=== PATIENT | male | born 1950 | race Caucasian/White ===

== ENCOUNTER → 2016-07-25 | Outpatient (CLI) | payer MEDICARE ==
[2016-07-25 13:24] LABS: CALCIUM LEVEL 8.5 MG/DL (8.8-10.2); CREATININE FOR GFR 1.36 MG/DL (0.70-1.30); GLOMERULAR FILTRATION RATE 55.8 (>49); POTASSIUM SERUM 4.6 MEQ/L (3.5-5.1)
== END ==
LOC: M LAB 12:07
PROVIDERS: ATTEND Urology
DX: C64.1 Malignant neoplasm of right kidney, except renal pelvis (principal); Z12.5 Encounter for screening for malignant neoplasm of prostate
CPT/HCPCS: 36415; 80048; G0103

== ENCOUNTER → 2017-07-27 | Outpatient (CLI) | payer MEDICARE ==
[2017-07-27 12:39] LABS: BASO # 0.1 10^3/uL (0.0-0.2); BASO % 1.1 % (0.0-1.0); EOS # 0.4 10^3/uL (0.0-0.50); EOS % 3.6 % (0.0-3.0); HEMATOCRIT 47.4 % (42.0-52.0); HEMOGLOBIN 16.7 g/dl (13.5-17.5); IMMATURE GRANULOCYTE % 0.3 % (0-3.0); LYMPH # 3.6 10^3/uL (1.5-4.5); LYMPH % 33.8 % (24.0-44.0); MEAN CORPUSCULAR HEMOGLOBIN 31.2 pg (27.0-33.0); MEAN CORPUSCULAR HGB CONC 35.2 g/dl (32.0-36.5); MEAN CORPUSCULAR VOLUME 88.4 fl (80.0-96.0); MONO # 0.9 10^3/uL (0.0-0.8); MONO % 8.8 % (0.0-5.0); NEUTROPHILS # 5.6 10^3/uL (1.8-7.7); NEUTROPHILS % 52.4 % (36.0-66.0); PLATELET COUNT, AUTOMATED 265 10^3/uL (150-450); RED BLOOD COUNT 5.36 10^6/uL (4.30-6.10); RED CELL DISTRIBUTION WIDTH 12.8 % (11.5-14.5); WHITE BLOOD COUNT 10.6 10^3/uL (4.0-10.0)
[2017-07-27 13:10] LABS: ANION GAP 6 MEQ/L (8-16); BLOOD UREA NITROGEN 14 MG/DL (7-18); CALCIUM LEVEL 8.3 MG/DL (8.8-10.2); CARBON DIOXIDE LEVEL 24 MEQ/L (21-32); CHLORIDE LEVEL 108 MEQ/L (98-107); GLOMERULAR FILTRATION RATE 53.8 (>49); GLUCOSE, FASTING 120 MG/DL (70-100); SODIUM LEVEL 138 MEQ/L (136-145)
== END ==
LOC: M LAB 12:12
DX: I35.1 Nonrheumatic aortic (valve) insufficiency (principal); I25.10 Atherosclerotic heart disease of native coronary artery without angina pectoris; R42 Dizziness and giddiness; I35.0 Nonrheumatic aortic (valve) stenosis
CPT/HCPCS: 80048

== ENCOUNTER → 2018-02-05 | Outpatient (CLI) | payer MEDICARE ==
[2018-02-05 15:07] LABS: ANION GAP 9 MEQ/L (8-16); BLOOD UREA NITROGEN 12 MG/DL (7-18); CALCIUM LEVEL 9.1 MG/DL (8.8-10.2); CARBON DIOXIDE LEVEL 28 MEQ/L (21-32); CHLORIDE LEVEL 103 MEQ/L (98-107); CREATININE FOR GFR 1.21 MG/DL (0.70-1.30); GLOMERULAR FILTRATION RATE > 60.0 (>49); GLUCOSE, FASTING 114 MG/DL (70-100); POTASSIUM SERUM 4.1 MEQ/L (3.5-5.1); PROSTATIC SPECIFIC AG MONITOR 2.34 NG/ML (< 4.0); SODIUM LEVEL 140 MEQ/L (136-145)
== END ==
LOC: M LAB 14:03
DX: C64.1 Malignant neoplasm of right kidney, except renal pelvis (principal)
CPT/HCPCS: 71046

== ENCOUNTER 2018-11-19 07:04 | Day surgery (SDC) | payer MEDICARE ==
[~2018-11-19] VITALS: Ht 180.3 cm; Wt 104.3 kg
[~2018-11-19 07:04] MED LIST: ASPI81TA85 PO; CLOP75TA2 PO; DULO1CAP5 PO; FISH1000 PO; FLOM0.4C39 PO; LIPI20TA PO; MULTCAP PO; areds 2 PO
[2018-11-19] MEDS ORDERED: NS 1,000 ML IV ONE (07:30)
[2018-11-19] MEDS ORDERED: PROPOFOL 200 MG/20 ML VIAL As Ordered ONE ×2 (07:45→08:34)
[2018-11-19] MEDS ORDERED: LIDOCAINE 2% INJ 100 MG/5 ML SDV (FOR ANES.) As Ordered ONE (07:45)
--- NOTE | 2018-11-19 08:58 | ROOR ---
Patient Name: Addy Ledezma Procedure Date: 11/19/2018 8:10 AM Date of : 1950 Age: 68 Room: [facility] Gender: Male Note Status: Finalized Procedure: Colonoscopy Indications: Screening for colorectal malignant neoplasm Providers: Triston Alvarez MD Referring MD: Jm Lentz DO Requesting Provider: Medicines: Monitored Anesthesia Care Complications: No immediate complications. Procedure: Pre-Anesthesia Assessment: - Prior to the procedure, a History and Physical was performed, and patient medications and allergies were reviewed. The patient is competent. The risks and benefits of the procedure and the sedation options and risks were discussed with the patient. All questions were answered and informed consent was obtained. Patient identification and proposed procedure were verified by the physician, the nurse and the anesthesiologist in the procedure room. Mental Status Examination: alert and oriented. Airway Examination: normal oropharyngeal airway and neck mobility. Respiratory Examination: clear to auscultation. CV Examination: normal. Prophylactic Antibiotics: The patient does not require prophylactic antibiotics. Prior Anticoagulants: The patient has taken Plavix (clopidogrel), last dose was 7 days prior to procedure. ASA Grade Assessment: II - A patient with mild systemic disease. After reviewing the risks and benefits, the patient was deemed in satisfactory condition to undergo the procedure. The anesthesia plan was to use monitored anesthesia care (MAC). Immediately prior to administration of medications, the patient was re-assessed for adequacy to receive sedatives. The heart rate, respiratory rate, oxygen saturations, blood pressure, adequacy of pulmonary ventilation, and response to care were monitored throughout the procedure. The physical status of the patient was re-assessed after the procedure. The Colonoscope was introduced through the anus and advanced to the terminal ileum, with identification of the appendiceal orifice and IC valve. The colonoscopy was performed without difficulty. The patient tolerated the procedure well. The quality of the bowel preparation was good. The terminal ileum, ileocecal valve, appendiceal orifice, and rectum were photographed. Scope insertion time was 3 minutes. Scope withdrawal time was 9 minutes. The total duration of the procedure was 12 minutes. Findings: The perianal and digital rectal examinations were normal. The terminal ileum appeared normal. Three sessile polyps were found in the transverse colon. The polyps were 6 to 12 mm in size. These polyps were removed with a cold snare. Resection and retrieval were complete. Verification of patient identification for the specimen was done by the physician and nurse using the patient's name, date and medical record number. Estimated blood loss was minimal. Eight sessile polyps were found in the recto-sigmoid colon. The polyps were 3 to 8 mm in size. These polyps were removed with a cold snare. Resection and retrieval were complete. Multiple small-mouthed diverticula were found from sigmoid to descending colon. There was no evidence of diverticular bleeding. Non-bleeding external and internal hemorrhoids were found during retroflexion. The hemorrhoids were medium-sized. Impression: - The examined portion of the ileum was normal. - Three 6 to 12 mm polyps in the transverse colon, removed with a cold snare. Resected and retrieved. - Eight 3 to 8 mm polyps at the recto-sigmoid colon, removed with a cold snare. Resected and retrieved. - Mild diverticulosis from sigmoid to descending colon. There was no evidence of diverticular bleeding. - Non-bleeding external and internal hemorrhoids. Recommendation: - Patient has a contact number available for emergencies. The signs and symptoms of potential delayed complications were discussed with the patient. Return to normal activities tomorrow. Written discharge instructions were provided to the patient. - High fiber diet. - Continue present medications. - Resume Plavix (clopidogrel) at prior dose tomorrow. Refer to primary physician for further adjustment of therapy. - Await pathology results. - Repeat colonoscopy in 1 year for surveillance based on pathology results and for surveillance of multiple polyps. - Return to GI clinic in 1 year. - Telephone GI clinic for pathology results in 2 weeks. - Return to primary care physician. Triston Alvarez MD Triston Alvarez MD 11/19/2018 8:57:33 AM Electronically signed by Triston Alvarez MD Number of Addenda: 0 Note Initiated On: 11/19/2018 8:10 AM Estimated Blood Loss: Estimated blood loss was minimal.
[2018-11-19 09:19] VITALS: BP 136/86
== END 2018-11-19 09:21 | disposition home or self-care (01) ==
LOC: M OPP 07:04
PROVIDERS: ATTEND Internal Medicine Gastroenterology
DX: Z12.11 Encounter for screening for malignant neoplasm of colon (principal); K64.8 Other hemorrhoids; D12.3 Benign neoplasm of transverse colon; K63.5 Polyp of colon; K57.30 Diverticulosis of large intestine without perforation or abscess without bleeding; N40.0 Benign prostatic hyperplasia without lower urinary tract symptoms; Z79.82 Long term (current) use of aspirin; Z79.899 Other long term (current) drug therapy; F17.210 Nicotine dependence, cigarettes, uncomplicated; Z90.5 Acquired absence of kidney; Z95.5 Presence of coronary angioplasty implant and graft; Z91.89 Other specified personal risk factors, not elsewhere classified

== ENCOUNTER → 2019-02-04 | Outpatient (CLI) | payer MEDICARE ==
[2019-02-04 14:10] LABS: BLOOD UREA NITROGEN 11 MG/DL (7-18); CALCIUM LEVEL 8.6 MG/DL (8.8-10.2); CARBON DIOXIDE LEVEL 25 MEQ/L (21-32); CHLORIDE LEVEL 109 MEQ/L (98-107); CREATININE FOR GFR 1.21 MG/DL (0.70-1.30); GLOMERULAR FILTRATION RATE > 60.0 (>49); GLUCOSE, FASTING 124 MG/DL (70-100); PROSTATIC SPECIFIC AG MONITOR 2.71 NG/ML (< 4.00); SODIUM LEVEL 140 MEQ/L (136-145)
--- NOTE | 2019-02-04 16:45 | REP ---
PA and lateral chest three views: Comparison is 02/05/2018. Current study is performed with nipple markers. There are two PA views, one with arms at sides and the other with arms over head. On the comparison study a nodular density was identified inferiorly in the right lung measuring 7 mm. On the current study with nipple markers as previous nodule inferiorly in the right lung corresponds to the nipple marker on both views. This suggests that the nodular density identified previously is likely nipple artifact. There is no nodular density on the left. The lung tucker otherwise clear and unchanged. The cardiac size is normal. The tiffany and mediastinum are unchanged. There is thoracic scoliosis convex right, unchanged. Impression: Negative PA and lateral chest. The nodular density inferiorly in the right lung on the previous study corresponds to the nipple marker. There are no other nodular densities on the right on the left. Electronically Signed by Micha Treviño MD 02/04/2019 04:37 P
== END ==
LOC: M LAB 12:41
PROVIDERS: ATTEND Urology
DX: N28.1 Cyst of kidney, acquired (principal); Z12.5 Encounter for screening for malignant neoplasm of prostate

== ENCOUNTER → 2020-01-07 | Outpatient (CLI) | payer MEDICARE ==
[~2020-01-07] MED LIST changes: +ASPI81CH48 PO; -ASPI81TA85 PO; +ASPI81TA86 PO; +CRES40TA PO; +ICAPTAB PO; +MEGA1CAP3 PO; +NITR0.4S14 SL; +NORC1TAB7 PO
== END ==
LOC: M LAB 15:46
PROVIDERS: ATTEND Urology
DX: C64.1 Malignant neoplasm of right kidney, except renal pelvis (principal)

== ENCOUNTER → 2020-01-25 | Outpatient (CLI) | payer MEDICARE | LOC: M LABSMTC 08:17 | PROVIDERS: ATTEND Anesthesiology | DX: Z01.812 Encounter for preprocedural laboratory examination (principal); Z20.828 Contact with and (suspected) exposure to other viral communicable diseases | CPT/HCPCS: C9803; U0003 ==

== ENCOUNTER 2020-01-30 09:32 | Day surgery (SDC) | payer MEDICARE ==
[~2020-01-30] VITALS: Ht 180.3 cm; Wt 104.1 kg
[~2020-01-30 09:32] MED LIST changes: +NS 1,000 ML IV ONE
[2020-01-30] MEDS ORDERED: propofoL 200 MG/20 ML VIAL As Ordered ONE ×2 (10:57→11:15)
[2020-01-30] MEDS ORDERED: LIDOCAINE 2% 100MG/5ML SDV (FOR ANES.) As Ordered ONE (11:03)
[2020-01-30] MEDS ORDERED: PHENYLephrine HCL 500 MCG/5 ML (100MCG/ML) SYRINGE (J2370) As Ordered ONE (11:26)
--- NOTE | 2020-01-30 11:45 | ROOR ---
Patient Name: Addy Ledezma Procedure Date: 01/30/2020 10:55 AM Date of : 1950 Age: 69 Room: [facility] Gender: Male Note Status: Finalized Procedure: Colonoscopy Indications: High risk colon cancer surveillance: Personal history of colonic polyps Providers: Triston Alvarez MD Referring MD: Jm Lentz DO Requesting Provider: Medicines: Monitored Anesthesia Care Complications: No immediate complications. Procedure: Pre-Anesthesia Assessment: - Prior to the procedure, a History and Physical was performed, and patient medications and allergies were reviewed. The patient is competent. The risks and benefits of the procedure and the sedation options and risks were discussed with the patient. All questions were answered and informed consent was obtained. Patient identification and proposed procedure were verified by the physician, the nurse and the anesthesiologist in the procedure room. Mental Status Examination: alert and oriented. Airway Examination: normal oropharyngeal airway and neck mobility. Respiratory Examination: clear to auscultation. CV Examination: normal. Prophylactic Antibiotics: The patient does not require prophylactic antibiotics. Prior Anticoagulants: The patient has taken Plavix (clopidogrel), last dose was 7 days prior to procedure. ASA Grade Assessment: II - A patient with mild systemic disease. After reviewing the risks and benefits, the patient was deemed in satisfactory condition to undergo the procedure. The anesthesia plan was to use monitored anesthesia care (MAC). Immediately prior to administration of medications, the patient was re-assessed for adequacy to receive sedatives. The heart rate, respiratory rate, oxygen saturations, blood pressure, adequacy of pulmonary ventilation, and response to care were monitored throughout the procedure. The physical status of the patient was re-assessed after the procedure. The Colonoscope was introduced through the anus and advanced to the terminal ileum, with identification of the appendiceal orifice and IC valve. The colonoscopy was performed without difficulty. The patient tolerated the procedure well. The quality of the bowel preparation was good. The terminal ileum, ileocecal valve, appendiceal orifice, and rectum were photographed. Scope insertion time was 3 minutes. Scope withdrawal time was 9 minutes. The total duration of the procedure was 14 minutes. Findings: The perianal and digital rectal examinations were normal. The terminal ileum appeared normal. Three sessile polyps were found in the recto-sigmoid colon. The polyps were 4 to 5 mm in size. These polyps were removed with a cold snare. Resection and retrieval were complete. Verification of patient identification for the specimen was done by the physician and nurse using the patient's name, date and medical record number. Estimated blood loss was minimal. Non-bleeding external and internal hemorrhoids were found during retroflexion. The hemorrhoids were medium-sized. Impression: - The examined portion of the ileum was normal. - Three 4 to 5 mm polyps at the recto-sigmoid colon, removed with a cold snare. Resected and retrieved. - Non-bleeding external and internal hemorrhoids. Recommendation: - Patient has a contact number available for emergencies. The signs and symptoms of potential delayed complications were discussed with the patient. Return to normal activities tomorrow. Written discharge instructions were provided to the patient. - High fiber diet. - Continue present medications. - Resume Plavix (clopidogrel) at prior dose tomorrow. Refer to primary physician for further adjustment of therapy. - Await pathology results. - Repeat colonoscopy in 5-10 years for surveillance based on pathology results. - Telephone GI clinic for pathology results in 2 weeks. - Return to primary care physician. Triston Alvarez MD Triston Alvarez MD 01/30/2020 11:45:25 AM Electronically signed by Triston Alvarez MD Number of Addenda: 0 Note Initiated On: 01/30/2020 10:55 AM Estimated Blood Loss: Estimated blood loss was minimal.
[2020-01-30 12:09] VITALS: BP 106/59
== END 2020-01-30 12:11 | disposition home or self-care (01) ==
LOC: M OPP 09:32
PROVIDERS: ATTEND Internal Medicine Gastroenterology
DX: Z86.010 Personal history of colon polyps (principal); K63.5 Polyp of colon; K64.8 Other hemorrhoids; Z09 Encounter for follow-up examination after completed treatment for conditions other than malignant neoplasm; I35.9 Nonrheumatic aortic valve disorder, unspecified; F17.210 Nicotine dependence, cigarettes, uncomplicated; Z79.82 Long term (current) use of aspirin; Z79.891 Long term (current) use of opiate analgesic; Z79.899 Other long term (current) drug therapy; Z95.5 Presence of coronary angioplasty implant and graft
CPT/HCPCS: 45385; 88305; J2370

== ENCOUNTER → 2023-01-23 | Outpatient (CLI) | payer MEDICARE ==
[~2023-01-23] MED LIST changes: +ATOR40TA75; +CENTTAB16 PO; +FARX1TAB3 PO; +HYDR-3713; +HYDR500C3 PO; +ICAPCAP2 PO; -NS 1,000 ML IV ONE; +PANT40TA29; +TRAD5TAB
== END ==
LOC: M RAD 14:21
PROVIDERS: ATTEND Urology
DX: N28.1 Cyst of kidney, acquired (principal); R97.20 Elevated prostate specific antigen [PSA]

== ENCOUNTER → 2023-12-18 | Outpatient (REF) | payer MEDICARE ==
[~2023-12-18] MED LIST changes: +FARX1TAB5 PO; +FINA5TAB2 PO
== END ==
LOC: M SFHCDERM 08:37
PROVIDERS: ATTEND Physician Assistant
DX: D48.5 Neoplasm of uncertain behavior of skin (principal)

== ENCOUNTER → 2024-07-28 | Outpatient (REF) | payer MEDICARE ==
[~2024-07-28] MED LIST changes: +ATOR1TAB21; -FLOM0.4C39 PO; +TAMS-18 PO; +TAMS1CAP17
== END ==
LOC: M LAB REF 14:44
PROVIDERS: ATTEND Urology
DX: N40.0 Benign prostatic hyperplasia without lower urinary tract symptoms (principal)

== ENCOUNTER → 2024-10-20 | Outpatient (REF) | payer MEDICARE ==
[~2024-10-20] MED LIST changes: +NYST-38 PO
[2024-10-20 15:42] LABS: BASO # 0.1 10^3/uL (0.0-0.2); BASO % 0.9 % (0.0-1.0); EOS # 0.0 10^3/uL (0.0-0.5); EOS % 0.2 % (0.0-3.0); LYMPH # 1.8 10^3/uL (1.5-5.0); LYMPH % 19.1 % (24.0-44.0); MONO # 0.9 10^3/uL (0.0-0.8); MONO % 9.9 % (2.0-8.0); NEUTROPHILS # 6.5 10^3/uL (1.5-8.5); NEUTROPHILS % 69.4 % (36.0-66.0); PLATELET COUNT, AUTOMATED 204 10^3/uL (150-450)
[2024-10-20 15:45] LABS: APPEARANCE, URINE CLEAR (CLEAR); BACTERIA, URINE AUTO NEGATIVE (NEGATIVE); BILIRUBIN, URINE AUTO NEGATIVE (NEGATIVE); BLOOD, URINE BLOOD 3+ (NEGATIVE); GLUCOSE, URINE (UA) AUTO 3+ mg/dL (NEGATIVE); KETONE, URINE AUTO NEGATIVE (NEGATIVE); LEUKOCYTE ESTERASE, URINE AUTO NEGATIVE (NEGATIVE); NITRITE, URINE AUTO NEGATIVE (NEGATIVE); PROTEIN, URINE AUTO 1+ mg/dL (NEGATIVE); RBC, URINE AUTO 7 /HPF (0-3); SPECIFIC GRAVITY URINE AUTO 1.005 (1.002-1.035); SQUAMOUS EPITHELIAL CELL UR AU 0 /HPF (0-6); UROBILINOGEN, URINE AUTO 0.2 mg/dL (0.0-2.0); WBC, URINE AUTO 1 /HPF (0-3)
[2024-10-20 15:48] LABS: ERYTHROCYTE SEDIMENTATION RATE 16 mm/hr (0-20)
[2024-10-20 16:07] LABS: ESTIMATED AVERAGE GLUCOSE 117.0 MG/DL (60-110)
[2024-10-20 16:13] LABS: CREATININE, URINE 62.2 MG/DL; MALB URINE SIEMENS 101.0 MG/L; MAU/CREAT RATIO 162.3 MCG/MG (0.0-30.0)
[2024-10-20 16:20] LABS: ALT/SGPT 32.0 U/L (7.0-40); AST/SGOT 28.0 U/L (<34); C REACTIVE PROTEIN QUANTITATIV 4.04 MG/DL (<1.0); CALCIUM LEVEL 8.8 MG/DL (8.3-10.6); CARBON DIOXIDE LEVEL 25.0 MMOL/L (20-31); CHLORIDE LEVEL 103.0 MMOL/L (98-107); CHOLESTEROL LEVEL 146.0 MG/DL (<200); CHOLESTEROL RISK RATIO 4.49 (<5); CREATININE FOR GFR 1.29 MG/DL (0.70-1.30); GLOMERULAR FILTRATION RATE 58.2 (>42); LDL CHOLESTEROL 81.9 MG/DL (<100); NON-HDL-C 113.5 MG/DL; POTASSIUM SERUM 4.1 MMOL/L (3.5-5.1); PSA SCREENING 1.62 NG/ML (< 4.00); SODIUM LEVEL 138.0 MMOL/L (136-145); TRIGLYCERIDES LEVEL 158.0 MG/DL (<150)
[2024-10-20 16:22] LABS: FREE T4 1.15 NG/DL (0.89-1.76); VITAMIN B12 LEVEL 489.0 PG/ML (211-911)
== END ==
LOC: M LAB REF 15:18
PROVIDERS: ATTEND Family Medicine
DX: R80.9 Proteinuria, unspecified (principal); M35.9 Systemic involvement of connective tissue, unspecified; E78.00 Pure hypercholesterolemia, unspecified; I10 Essential (primary) hypertension; D29.1 Benign neoplasm of prostate; Z86.73 Personal history of transient ischemic attack (TIA), and cerebral infarction without residual deficits; D75.1 Secondary polycythemia

== ENCOUNTER 2024-10-24 15:48 | Inpatient (IN) | payer MEDICARE ==
[~2024-10-24] VITALS: Ht 172.7 cm; Wt 107.1 kg
[~2024-10-24 15:48] MED LIST changes: -HYDR-3713; +HYDR-3713 PO; -PANT40TA29; +PANT40TA29 PO; -TAMS1CAP17; +TAMS1CAP17 PO
[2024-10-24] MEDS ORDERED: ATOR40TA75 PO (16:17)
[2024-10-24 16:19] LABS: KETONE, URINE AUTO RFX NEGATIVE (NEGATIVE); LEUKOCYTE ESTERASE UR AUTO RFX NEGATIVE (NEGATIVE); MUCUS, URINE RFX SMALL (NEGATIVE); NITRITE, URINE AUTO RFX NEGATIVE (NEGATIVE); RBC, URINE AUTO RFX 0 /HPF (0-3); SQUAM EPITHELIAL CELL UR AURFX 1 /HPF (0-6); WBC, URINE AUTO RFX 0 /HPF (0-3)
[2024-10-24] MEDS ORDERED: KETO120S5 TOP (16:21)
[2024-10-24] MEDS: NS (Normal Saline) 0.9% 1,000 ML IV ONE (17:39)
[2024-10-24 17:55] LABS: BASO # 0.0 10^3/uL (0.0-0.2); BASO % 0.3 % (0.0-1.0); EOS # 0.0 10^3/uL (0.0-0.5); EOS % 0.3 % (0.0-3.0); LYMPH # 2.1 10^3/uL (1.5-5.0); LYMPH % 16.3 % (24.0-44.0); MONO # 1.4 10^3/uL (0.0-0.8); MONO % 11.2 % (2.0-8.0); NEUTROPHILS # 9.1 10^3/uL (1.5-8.5); NEUTROPHILS % 71.4 % (36.0-66.0); PLATELET COUNT, AUTOMATED 178 10^3/uL (150-450)
[2024-10-24 17:58] LABS: INR 1.0
[2024-10-24 18:00] LABS: ALT/SGPT 42 U/L (7.0-40); AST/SGOT 33 U/L (<34); CALCIUM LEVEL 5.2 MG/DL (8.3-10.6); CARBON DIOXIDE LEVEL 16 MMOL/L (20-31); CHLORIDE LEVEL 115 MMOL/L (98-107); CPK CREATINE PHOSPHOKINASE 122 U/L (46-171); CREATININE FOR GFR 0.86 MG/DL (0.70-1.30); GLOMERULAR FILTRATION RATE > 90.0 (>42); POTASSIUM SERUM 3.3 MMOL/L (3.5-5.1); SODIUM LEVEL 147 MMOL/L (136-145)
[2024-10-24] MEDS ORDERED: ISOVUE-370 76% 100 ML VIAL As Ordered ONE (18:19)
[2024-10-24] MEDS: CALCIUM GLUCONATE 1,000 MG in DEXTROSE 5% (D5W) MINI-BAG PLU 100 ML IV ONE (18:20)
[2024-10-24] MEDS: POTASSIUM CHLORIDE 10MEQ SR TABLET PO ONE (18:21)
[2024-10-24] MEDS: MORPHINE 4 MG/ML 1 ML VIAL IV ONE (18:21)
[2024-10-24 18:29] LABS: MAGNESIUM LEVEL 1.4 MG/DL (1.8-2.4); PHOSPHORUS LEVEL 2.1 MG/DL (2.4-5.1)
[2024-10-24] MEDS: CEFEPIME HCL 2 GM in DEXTROSE 5% (D5W) ADV/MINI-BAG 50 ML IV ONE (19:44)
[2024-10-24] MEDS: ACETAMINOPHEN *IV* 1,000 MG in IV 1 EA IV ONE (19:44)
[2024-10-24] MEDS ORDERED: PRES10CA2 PO (21:25)
[2024-10-24] MEDS ORDERED: ATOR1TAB21 PO (21:25)
[2024-10-24] MEDS ORDERED: LEVO1TAB39 PO (21:25)
[2024-10-24] MEDS ORDERED: ECOT81TA5 PO (21:25)
[2024-10-24] MEDS ORDERED: HOME MED LIST COMPLETE! XX SCH (21:30)
[2024-10-24] MEDS ORDERED: MAALOX 30 ML SUSP *UDC PO PRN (21:40)
[2024-10-24] MEDS: CLOPIDOGREL 75 MG TAB PO SCH (23:17)
[2024-10-24] MEDS: ASPIRIN 81 MG ENTERIC TABLET PO SCH (23:17)
[2024-10-24] MEDS: FINASTERIDE 5 MG TAB PO SCH (23:17)
[2024-10-24] MEDS: ATORVASTATIN 20 MG TAB PO SCH (23:18)
[2024-10-24] MEDS: MAG SULF 1GM/100ML (MAG RUN) 1 GM in IV 1 EA IV SCH (23:25)
[2024-10-24] MEDS: TAMSULOSIN 0.4 MG CAP PO SCH (23:31)
[2024-10-24] MEDS: PANTOPRAZOLE 40MG TAB PO SCH (23:31)
[2024-10-25] MEDS: LR 1,000 ML IV SCH (02:02)
[2024-10-25 02:10] LABS: ERYTHROCYTE SEDIMENTATION RATE 18 mm/hr (0-20)
[2024-10-25 02:25] LABS: IRON (FE) 18.0 UG/DL (65-175); PERCENT SATURATION 7.1 % (19.7-50.0); PTH INTACT 32.8 PG/ML (18.5-88.0)
[2024-10-25 02:29] LABS: FREE T4 1.33 NG/DL (0.89-1.76); TOTAL 25(OH) VITAMIN D 26.4 NG/ML (20.0-100.0)
[2024-10-25 03:10] LABS: ESTIMATED AVERAGE GLUCOSE 120.0 MG/DL (60-110)
[2024-10-25 03:46] VITALS: BP 107/59; TEMP 97.9; O2SAT 96
[2024-10-25 06:26] LABS: BASO # 0.1 10^3/uL (0.0-0.2); BASO % 0.4 % (0.0-1.0); EOS # 0.1 10^3/uL (0.0-0.5); EOS % 0.7 % (0.0-3.0); LYMPH # 3.1 10^3/uL (1.5-5.0); LYMPH % 22.8 % (24.0-44.0); MONO # 1.7 10^3/uL (0.0-0.8); MONO % 12.1 % (2.0-8.0); NEUTROPHILS # 8.8 10^3/uL (1.5-8.5); NEUTROPHILS % 63.4 % (36.0-66.0); PLATELET COUNT, AUTOMATED 172 10^3/uL (150-450)
[2024-10-25 06:58] LABS: CALCIUM LEVEL 8.5 MG/DL (8.3-10.6); CARBON DIOXIDE LEVEL 24.0 MMOL/L (20-31); CHLORIDE LEVEL 107.0 MMOL/L (98-107); CREATININE FOR GFR 1.2 MG/DL (0.70-1.30); GLOMERULAR FILTRATION RATE 63.5 (>42); MAGNESIUM LEVEL 2.4 MG/DL (1.8-2.4); PHOSPHORUS LEVEL 3.3 MG/DL (2.4-5.1); POTASSIUM SERUM 4.7 MMOL/L (3.5-5.1); SODIUM LEVEL 142.0 MMOL/L (136-145)
[2024-10-25] MEDS: DOCUSATE SODIUM 100 MG CAPSULE PO SCH (09:25)
[2024-10-25] MEDS ORDERED: VANCOMYCIN HCL 0 MG in IV FLUID PLACE HOLDER 1 EA IV SCH (09:25)
[2024-10-25] MEDS: VANCOMYCIN HCL 1,500 MG, VIAL MATE ADAPTER 1 EACH in NS 500 ML IV ONE (11:29)
[2024-10-25 11:49] VITALS: BP 105/80; TEMP 97.8; O2SAT 96
[2024-10-25] MEDS ORDERED: IPRATROPIUM 0.5 MG/ALBUTEROL 2.5 MG INH SOL UD 3 ML NEB PRN (15:15)
[2024-10-25] MEDS: LIDOCAINE 5% PATCH TD SCH (16:23)
[2024-10-25 19:46] VITALS: BP 117/65; TEMP 98.1; O2SAT 94
[2024-10-25] MEDS ORDERED: ATORVASTATIN 20 MG TAB PO SCH (21:00)
[2024-10-25] MEDS: VANCOMYCIN HCL 1,000 MG, VIAL MATE ADAPTER 1 EACH in NS 250 ML IV SCH (21:10)
[2024-10-26 04:05] VITALS: BP 116/65; TEMP 97.7; O2SAT 95
[2024-10-26 04:28] LABS: T P ELECTROPHORESIS SO 5.2 g/dL (6.1-8.1)
[2024-10-26] MEDS: HEPARIN SOD 5000 UNITS/ML 1 ML VIAL/SYRINGE SQ SCH (05:56)
[2024-10-26 08:29] LABS: PLATELET COUNT, AUTOMATED 206 10^3/uL (150-450)
[2024-10-26 08:51] LABS: CALCIUM LEVEL 7.9 MG/DL (8.3-10.6); CARBON DIOXIDE LEVEL 24.0 MMOL/L (20-31); CHLORIDE LEVEL 107.0 MMOL/L (98-107); CREATININE FOR GFR 1.11 MG/DL (0.70-1.30); GLOMERULAR FILTRATION RATE 69.7 (>42); MAGNESIUM LEVEL 2.1 MG/DL (1.8-2.4); PHOSPHORUS LEVEL 3.5 MG/DL (2.4-5.1); POTASSIUM SERUM 4.6 MMOL/L (3.5-5.1); SODIUM LEVEL 143.0 MMOL/L (136-145); VANCOMYCIN LEVEL TROUGH 7.8 UG/ML (10.0-20.0)
[2024-10-26 10:10] LABS: ATYPICAL LYMPH 5 % (0-5); EOSINOPHILS 1 % (0-3); LYMPHOCYTES 13 % (16-44); MONOCYTES 7 % (0-5); NEUTROPHILS 71 % (28-66); PLASMA CELL 1 % (0-0)
[2024-10-26 10:12] LABS: PLATELET ESTIMATE NORMAL (NORMAL)
[2024-10-26 12:00] VITALS: BP 118/66; TEMP 98.1; O2SAT 96
[2024-10-26 20:57] VITALS: BP 128/73; TEMP 97.7; O2SAT 92
[2024-10-26] MEDS: ACETAMINOPHEN 325 MG TAB PO PRN (21:09)
[2024-10-27 04:04] VITALS: BP 125/71; TEMP 97.7; O2SAT 91
[2024-10-27 07:15] LABS: BASO # 0.1 10^3/uL (0.0-0.2); BASO % 0.6 % (0.0-1.0); EOS # 0.3 10^3/uL (0.0-0.5); EOS % 2.9 % (0.0-3.0); LYMPH # 2.8 10^3/uL (1.5-5.0); LYMPH % 27.4 % (24.0-44.0); MONO # 1.1 10^3/uL (0.0-0.8); MONO % 10.2 % (2.0-8.0); NEUTROPHILS # 6.0 10^3/uL (1.5-8.5); NEUTROPHILS % 58.4 % (36.0-66.0); PLATELET COUNT, AUTOMATED 228 10^3/uL (150-450)
[2024-10-27 07:34] LABS: CALCIUM LEVEL 7.6 MG/DL (8.3-10.6); CARBON DIOXIDE LEVEL 25.0 MMOL/L (20-31); CHLORIDE LEVEL 105.0 MMOL/L (98-107); CREATININE FOR GFR 0.91 MG/DL (0.70-1.30); GLOMERULAR FILTRATION RATE 88.4 (>42); MAGNESIUM LEVEL 2.1 MG/DL (1.8-2.4); PHOSPHORUS LEVEL 3.5 MG/DL (2.4-5.1); POTASSIUM SERUM 3.9 MMOL/L (3.5-5.1); SODIUM LEVEL 140.0 MMOL/L (136-145)
[2024-10-27 12:00] VITALS: BP 121/66; TEMP 98.2; O2SAT 98
[2024-10-27] MEDS: AMPICILLIN SOD 2 GM in DEXTROSE 5% (D5W) MINI-BAG PLU 100 ML IV SCH (14:16)
[2024-10-27] MEDS: cefTRIAXone SOD 2 GM in DEXTROSE 5% (D5W) ADV/MINI-BAG 50 ML IV SCH (15:07)
[2024-10-27] MEDS ORDERED: MORPHINE 4 MG/ML 1 ML VIAL IV PRN (15:30)
[2024-10-27] MEDS ORDERED: EPIDURAL/PCA KEYS XX PRN (18:00)
[2024-10-27] MEDS: MORPHINE SULFATE INJ 100 MG in NS 90 ML IV SCH (18:05)
[2024-10-27 19:32] VITALS: BP 103/51; TEMP 98.2; O2SAT 92
[2024-10-28 04:00] VITALS: BP 125/76; TEMP 98.5; O2SAT 92
[2024-10-28 06:37] LABS: BASO # 0.1 10^3/uL (0.0-0.2); BASO % 0.6 % (0.0-1.0); EOS # 0.3 10^3/uL (0.0-0.5); EOS % 3.2 % (0.0-3.0); LYMPH # 2.8 10^3/uL (1.5-5.0); LYMPH % 28.3 % (24.0-44.0); MONO # 1.1 10^3/uL (0.0-0.8); MONO % 11.2 % (2.0-8.0); NEUTROPHILS # 5.6 10^3/uL (1.5-8.5); NEUTROPHILS % 55.9 % (36.0-66.0); PLATELET COUNT, AUTOMATED 257 10^3/uL (150-450)
[2024-10-28 07:00] LABS: CALCIUM LEVEL 7.6 MG/DL (8.3-10.6); CARBON DIOXIDE LEVEL 27.0 MMOL/L (20-31); CHLORIDE LEVEL 104.0 MMOL/L (98-107); CREATININE FOR GFR 0.91 MG/DL (0.70-1.30); GLOMERULAR FILTRATION RATE 88.4 (>42); MAGNESIUM LEVEL 2.1 MG/DL (1.8-2.4); PHOSPHORUS LEVEL 3.6 MG/DL (2.4-5.1); POTASSIUM SERUM 3.8 MMOL/L (3.5-5.1); SODIUM LEVEL 141.0 MMOL/L (136-145)
[2024-10-28 07:54] VITALS: BP 102/61; TEMP 98.7; O2SAT 93
[2024-10-28] MEDS ORDERED: HYDROMORPHONE HCL 0.5 MG/0.5 ML SYRINGE IV PRN (09:20)
[2024-10-28] MEDS: KETOROLAC 30 MG/ML 1 ML VIAL IV SCH (09:59)
[2024-10-28] MEDS: NS (Normal Saline) 0.9% 1,000 ML IV SCH (09:59)
[2024-10-28] MEDS: CYCLOBENZAPRINE 5 MG TABLET PO SCH (09:59)
[2024-10-28 11:09] LABS: ALBUMIN SPEP 2.7 g/dL (3.8-4.8); ALPHA-1-GLOBULINS SO 0.5 g/dL (0.2-0.3); ALPHA-2-GLOBULINS SO 0.9 g/dL (0.5-0.9); BETA 2 GLOBULIN 0.3 g/dL (0.2-0.5); BETA-GLOBULIN SO 0.3 g/dL (0.4-0.6); GAMMA GLOBULINS SO 0.5 g/dL (0.8-1.7)
[2024-10-28 12:00] VITALS: BP 119/64; TEMP 97.9; O2SAT 96
[2024-10-28] MEDS: ACETAMINOPHEN 500 MG TAB PO SCH (12:21)
[2024-10-28] MEDS: HYDROMORPHONE HCL 0.5 MG/0.5 ML SYRINGE IV PRN (13:20)
[2024-10-28] MEDS ORDERED: PROHANCE 279.3MG/ML 5ML VIAL As Ordered ONE (13:41)
[2024-10-28] MEDS ORDERED: PROHANCE 279.3MG/ML 15ML VIAL As Ordered ONE (13:42)
[2024-10-28] MEDS ORDERED: LIDOCAINE 2% 100 MG/5 ML SDV (FOR ANES.) As Ordered ONE (17:43)
[2024-10-28] MEDS: CETACAINE SPRAY 5 GM As Ordered ONE (18:13)
[2024-10-28] MEDS ORDERED: GLUCAGON INJ 1 MG VIAL SC PRN (18:25)
[2024-10-28] MEDS ORDERED: INSULIN LISPRO (NovoLOG) PER UNIT SC PRN (18:25)
[2024-10-28] MEDS ORDERED: GLUCOSE 4 GM CHEW PO PRN (18:25)
[2024-10-28] MEDS: LR 1,000 ML IV SCH (18:25)
[2024-10-28] MEDS ORDERED: DEXTROSE 50% 50 ML SYRINGE IV PRN (18:25)
[2024-10-28] MEDS ORDERED: ONDANSETRON 4MG 2ML VIAL IV PRN (18:25)
[2024-10-28 18:50] VITALS: BP 128/81; TEMP 97.7; O2SAT 94
[2024-10-28 19:44] VITALS: BP 126/79; TEMP 97.7; O2SAT 93
[2024-10-29 00:15] VITALS: O2SAT 89
[2024-10-29 02:05] VITALS: O2SAT 91
[2024-10-29 03:33] VITALS: BP 125/78; TEMP 97.9; O2SAT 91
[2024-10-29] MEDS ORDERED: NALOXONE INJ 0.4 MG/1 ML VIAL IV PRN (04:20)
[2024-10-29] MEDS: METHOCARBAMOL 1,000 MG/10 ML VIAL IV ONE (05:10)
[2024-10-29 05:42] LABS: BASO # 0.1 10^3/uL (0.0-0.2); BASO % 0.8 % (0.0-1.0); EOS # 0.5 10^3/uL (0.0-0.5); EOS % 4.7 % (0.0-3.0); LYMPH # 3.0 10^3/uL (1.5-5.0); LYMPH % 29.0 % (24.0-44.0); MONO # 1.2 10^3/uL (0.0-0.8); MONO % 11.8 % (2.0-8.0); NEUTROPHILS # 5.5 10^3/uL (1.5-8.5); NEUTROPHILS % 52.9 % (36.0-66.0); PLATELET COUNT, AUTOMATED 270 10^3/uL (150-450)
[2024-10-29 06:06] LABS: CALCIUM LEVEL 7.8 MG/DL (8.3-10.6); CARBON DIOXIDE LEVEL 27.0 MMOL/L (20-31); CHLORIDE LEVEL 105.0 MMOL/L (98-107); CREATININE FOR GFR 1.01 MG/DL (0.70-1.30); GLOMERULAR FILTRATION RATE 78.0 (>42); MAGNESIUM LEVEL 2.1 MG/DL (1.8-2.4); PHOSPHORUS LEVEL 3.4 MG/DL (2.4-5.1); POTASSIUM SERUM 3.7 MMOL/L (3.5-5.1); SODIUM LEVEL 142.0 MMOL/L (136-145)
[2024-10-29 07:19] LABS: C REACTIVE PROTEIN QUANTITATIV 7.89 MG/DL (<1.0)
[2024-10-29 12:00] VITALS: BP 123/76; TEMP 97.9; O2SAT 89
[2024-10-29] MEDS: KETOROLAC 30 MG/ML 1 ML VIAL IV SCH (18:20)
[2024-10-29 20:00] VITALS: BP 129/82; TEMP 98.4; O2SAT 92
[2024-10-29 23:32] LABS: PTH RELATED PEPTIDE 6 pg/mL (11-20)
[2024-10-30 04:00] VITALS: BP 110/68; TEMP 98.1
[2024-10-30 05:52] LABS: BASO # 0.1 10^3/uL (0.0-0.2); BASO % 0.4 % (0.0-1.0); EOS # 0.4 10^3/uL (0.0-0.5); EOS % 2.1 % (0.0-3.0); LYMPH # 3.5 10^3/uL (1.5-5.0); LYMPH % 17.4 % (24.0-44.0); MONO # 1.7 10^3/uL (0.0-0.8); MONO % 8.6 % (2.0-8.0); NEUTROPHILS # 14.2 10^3/uL (1.5-8.5); NEUTROPHILS % 71.0 % (36.0-66.0); PLATELET COUNT, AUTOMATED 266 10^3/uL (150-450)
[2024-10-30 06:13] LABS: C REACTIVE PROTEIN QUANTITATIV 9.36 MG/DL (<1.0)
[2024-10-30 06:14] LABS: CALCIUM LEVEL 7.7 MG/DL (8.3-10.6); CARBON DIOXIDE LEVEL 28.0 MMOL/L (20-31); CHLORIDE LEVEL 104.0 MMOL/L (98-107); CREATININE FOR GFR 1.06 MG/DL (0.70-1.30); GLOMERULAR FILTRATION RATE 73.6 (>42); MAGNESIUM LEVEL 1.9 MG/DL (1.8-2.4); PHOSPHORUS LEVEL 3.2 MG/DL (2.4-5.1); POTASSIUM SERUM 3.8 MMOL/L (3.5-5.1); SODIUM LEVEL 142.0 MMOL/L (136-145)
[2024-10-30 10:59] LABS: KETONE, URINE AUTO RFX NEGATIVE (NEGATIVE); MUCUS, URINE RFX SMALL (NEGATIVE); NITRITE, URINE AUTO RFX NEGATIVE (NEGATIVE); RBC, URINE AUTO RFX 88 /HPF (0-3); SQUAM EPITHELIAL CELL UR AURFX 4 /HPF (0-6)
[2024-10-30 11:00] LABS: LEUKOCYTE ESTERASE UR AUTO RFX 3+ (NEGATIVE); WBC, URINE AUTO RFX 134 /HPF (0-3)
[2024-10-30 11:57] VITALS: BP 105/60; TEMP 97; O2SAT 88
[2024-10-30 15:40] VITALS: BP 120/70; TEMP 98.1; O2SAT 93
[2024-10-30] MEDS: SODIUM CHLORIDE 0.9% INJ 10 ML SYR IV SCH (19:00)
[2024-10-30 20:00] VITALS: BP 137/76; TEMP 98.2; O2SAT 94
[2024-10-30] MEDS: ACETAMINOPHEN 500 MG TAB PO SCH (21:24)
[2024-10-31 04:00] VITALS: BP 133/73; TEMP 98.1; O2SAT 94
[2024-10-31 05:45] VITALS: O2SAT 92
[2024-10-31 05:58] LABS: BASO # 0.1 10^3/uL (0.0-0.2); BASO % 0.6 % (0.0-1.0); EOS # 0.5 10^3/uL (0.0-0.5); EOS % 3.5 % (0.0-3.0); LYMPH # 3.3 10^3/uL (1.5-5.0); LYMPH % 25.0 % (24.0-44.0); MONO # 1.0 10^3/uL (0.0-0.8); MONO % 7.8 % (2.0-8.0); NEUTROPHILS # 8.3 10^3/uL (1.5-8.5); NEUTROPHILS % 62.3 % (36.0-66.0); PLATELET COUNT, AUTOMATED 279 10^3/uL (150-450)
[2024-10-31 06:21] LABS: CALCIUM LEVEL 7.9 MG/DL (8.3-10.6); CARBON DIOXIDE LEVEL 28.0 MMOL/L (20-31); CHLORIDE LEVEL 104.0 MMOL/L (98-107); CREATININE FOR GFR 0.96 MG/DL (0.70-1.30); GLOMERULAR FILTRATION RATE 82.9 (>42); MAGNESIUM LEVEL 1.9 MG/DL (1.8-2.4); PHOSPHORUS LEVEL 2.9 MG/DL (2.4-5.1); POTASSIUM SERUM 3.7 MMOL/L (3.5-5.1); SODIUM LEVEL 141.0 MMOL/L (136-145)
[2024-10-31 09:15] LABS: C REACTIVE PROTEIN QUANTITATIV 10.95 MG/DL (<1.0)
[2024-10-31 11:25] VITALS: BP 138/71; TEMP 97.7; O2SAT 90
[2024-11-01 04:00] VITALS: BP 136/74; TEMP 97.7; O2SAT 93
[2024-11-01 20:45] VITALS: BP 161/87; TEMP 97.7; O2SAT 95
[2024-11-01] MEDS: DICLOFENAC EPOLAMINE 1.3% PATCH TOP SCH (23:00)
[2024-11-02] MEDS: RAMELTEON 8 MG TAB PO PRN (01:19)
[2024-11-02 08:30] VITALS: BP 146/84; TEMP 97.7; O2SAT 93
[2024-11-03 03:26] VITALS: BP 117/68; TEMP 97.9; O2SAT 95
[2024-11-03] MEDS: SODIUM CHLORIDE 0.9% INJ 10 ML SYR IV PRN (22:30)
[2024-11-04 04:43] VITALS: BP 143/76; TEMP 98.5; O2SAT 91
[2024-11-04 12:55] LABS: BASO # 0.1 10^3/uL (0.0-0.2); BASO % 0.8 % (0.0-1.0); EOS # 0.4 10^3/uL (0.0-0.5); EOS % 2.9 % (0.0-3.0); LYMPH # 3.4 10^3/uL (1.5-5.0); LYMPH % 27.7 % (24.0-44.0); MONO # 1.2 10^3/uL (0.0-0.8); MONO % 9.9 % (2.0-8.0); NEUTROPHILS # 7.1 10^3/uL (1.5-8.5); NEUTROPHILS % 58.1 % (36.0-66.0); PLATELET COUNT, AUTOMATED 394 10^3/uL (150-450)
[2024-11-04 13:03] LABS: ERYTHROCYTE SEDIMENTATION RATE 32 mm/hr (0-20)
[2024-11-04 13:14] LABS: C REACTIVE PROTEIN QUANTITATIV 3.29 MG/DL (<1.0)
[2024-11-04 13:15] LABS: ALT/SGPT 87 U/L (7.0-40); AST/SGOT 53 U/L (<34); CALCIUM LEVEL 8.3 MG/DL (8.3-10.6); CARBON DIOXIDE LEVEL 27 MMOL/L (20-31); CHLORIDE LEVEL 101 MMOL/L (98-107); CREATININE FOR GFR 1.01 MG/DL (0.70-1.30); GLOMERULAR FILTRATION RATE 78.0 (>42); POTASSIUM SERUM 4.2 MMOL/L (3.5-5.1); SODIUM LEVEL 140 MMOL/L (136-145)
[2024-11-04 15:55] LABS: HIV 1&2 SCREEN NEGATIVE (NEGATIVE)
[2024-11-04 16:04] LABS: HEPATITIS C VIRUS ABY INDEX < 0.02 INDEX (<0.8)
[2024-11-05 03:42] VITALS: BP 118/70; TEMP 97.6; O2SAT 95
[2024-11-05 06:16] LABS: BASO # 0.1 10^3/uL (0.0-0.2); BASO % 1.4 % (0.0-1.0); EOS # 0.4 10^3/uL (0.0-0.5); EOS % 3.6 % (0.0-3.0); LYMPH # 3.7 10^3/uL (1.5-5.0); LYMPH % 36.2 % (24.0-44.0); MONO # 1.1 10^3/uL (0.0-0.8); MONO % 10.6 % (2.0-8.0); NEUTROPHILS # 4.8 10^3/uL (1.5-8.5); NEUTROPHILS % 47.5 % (36.0-66.0); PLATELET COUNT, AUTOMATED 377 10^3/uL (150-450)
[2024-11-05 06:39] LABS: ALT/SGPT 90.0 U/L (7.0-40); AST/SGOT 53.0 U/L (<34); C REACTIVE PROTEIN QUANTITATIV 2.77 MG/DL (<1.0); CALCIUM LEVEL 8.3 MG/DL (8.3-10.6); CARBON DIOXIDE LEVEL 27.0 MMOL/L (20-31); CHLORIDE LEVEL 103.0 MMOL/L (98-107); CREATININE FOR GFR 0.98 MG/DL (0.70-1.30); GLOMERULAR FILTRATION RATE 80.9 (>42); POTASSIUM SERUM 3.9 MMOL/L (3.5-5.1); SODIUM LEVEL 140.0 MMOL/L (136-145)
[2024-11-06 06:25] VITALS: BP 120/70; TEMP 98.2; O2SAT 92
[2024-11-06 10:23] LABS: HEPATITIS B SURF AB QUANT < 5 mIU/mL (> OR = 10)
[2024-11-06 11:08] LABS: HEPATITIS B CORE ANTIBODY IGG NON-REACTIVE (NON-REACTIVE)
[2024-11-07 03:11] VITALS: BP 100/64; TEMP 97.5; O2SAT 95
[2024-11-07 20:00] VITALS: BP 127/73; TEMP 97.9; O2SAT 92
[2024-11-08 03:56] VITALS: BP 124/71; TEMP 97.5; O2SAT 93
[2024-11-08] MEDS: oxyCODONE 15MG CR TAB PO SCH (20:28)
[2024-11-09 04:29] VITALS: BP 139/72; TEMP 97.7; O2SAT 96
[2024-11-10 04:21] VITALS: BP 102/65; TEMP 98.1; O2SAT 94
[2024-11-10] MEDS: ONDANSETRON 4MG 2ML VIAL IV PRN (08:44)
[2024-11-10 16:00] VITALS: BP 64/48
[2024-11-10 16:08] VITALS: BP 93/59
[2024-11-10 16:41] VITALS: BP 120/72
[2024-11-10] MEDS: MIDODRINE 5 MG TAB PO ONE (16:41)
[2024-11-10 17:33] LABS: BASO # 0.1 10^3/uL (0.0-0.2); BASO % 0.9 % (0.0-1.0); EOS # 0.4 10^3/uL (0.0-0.5); EOS % 3.1 % (0.0-3.0); LYMPH # 2.9 10^3/uL (1.5-5.0); LYMPH % 22.8 % (24.0-44.0); MONO # 0.8 10^3/uL (0.0-0.8); MONO % 6.6 % (2.0-8.0); NEUTROPHILS # 8.4 10^3/uL (1.5-8.5); NEUTROPHILS % 66.1 % (36.0-66.0); PLATELET COUNT, AUTOMATED 367 10^3/uL (150-450)
[2024-11-10 17:41] LABS: ERYTHROCYTE SEDIMENTATION RATE 29 mm/hr (0-20)
[2024-11-10 18:05] LABS: C REACTIVE PROTEIN QUANTITATIV 2.12 MG/DL (<1.0)
[2024-11-10 18:13] LABS: CALCIUM LEVEL 9.4 MG/DL (8.3-10.6); CARBON DIOXIDE LEVEL 29.0 MMOL/L (20-31); CHLORIDE LEVEL 101.0 MMOL/L (98-107); CREATININE FOR GFR 1.12 MG/DL (0.70-1.30); GLOMERULAR FILTRATION RATE 68.9 (>42); POTASSIUM SERUM 4.5 MMOL/L (3.5-5.1); SODIUM LEVEL 140.0 MMOL/L (136-145)
[2024-11-11 05:56] VITALS: BP 111/70; TEMP 97; O2SAT 95
[2024-11-11 10:00] VITALS: BP 115/71; TEMP 97.6; O2SAT 97
[2024-11-12 03:23] VITALS: BP 115/93; TEMP 97.7; O2SAT 97
[2024-11-12 06:39] LABS: BASO # 0.1 10^3/uL (0.0-0.2); BASO % 1.3 % (0.0-1.0); EOS # 0.7 10^3/uL (0.0-0.5); EOS % 7.0 % (0.0-3.0); LYMPH # 4.2 10^3/uL (1.5-5.0); LYMPH % 39.2 % (24.0-44.0); MONO # 1.1 10^3/uL (0.0-0.8); MONO % 10.1 % (2.0-8.0); NEUTROPHILS # 4.5 10^3/uL (1.5-8.5); NEUTROPHILS % 41.9 % (36.0-66.0); PLATELET COUNT, AUTOMATED 363 10^3/uL (150-450)
[2024-11-12 07:17] LABS: ALT/SGPT 46.0 U/L (7.0-40); AST/SGOT 23.0 U/L (<34); C REACTIVE PROTEIN QUANTITATIV 2.17 MG/DL (<1.0); CALCIUM LEVEL 9.1 MG/DL (8.3-10.6); CARBON DIOXIDE LEVEL 28.0 MMOL/L (20-31); CHLORIDE LEVEL 101.0 MMOL/L (98-107); CREATININE FOR GFR 1.13 MG/DL (0.70-1.30); GLOMERULAR FILTRATION RATE 68.2 (>42); POTASSIUM SERUM 4.3 MMOL/L (3.5-5.1); SODIUM LEVEL 139.0 MMOL/L (136-145)
[2024-11-12 07:38] LABS: ERYTHROCYTE SEDIMENTATION RATE 32 mm/hr (0-20)
[2024-11-12 11:07] VITALS: BP 112/90
[2024-11-12] MEDS: MOM 30 ML SUSPENSION UDC PO PRN (17:48)
[2024-11-12] MEDS: FLEET ENEMA PR ONE (23:39)
[2024-11-12] MEDS: MIRALAX *UNIT DOSE* 17 GM PACKET PO SCH (23:51)
[2024-11-12] MEDS: SENNOSIDES/DOCUSATE SODIUM 8.6 MG/50MG TAB PO SCH (23:51)
[2024-11-13 03:53] VITALS: BP 109/73; TEMP 97.9; O2SAT 95
[2024-11-13] MEDS: BISACODYL 10 MG SUPP PR SCH (08:53)
[2024-11-13 20:00] VITALS: BP 109/73; TEMP 97.9; O2SAT 95
[2024-11-14 04:11] VITALS: BP 137/84; TEMP 97.7; O2SAT 94
[2024-11-14 13:24] LABS: CHOLESTEROL LEVEL 117.0 MG/DL (<200); CHOLESTEROL RISK RATIO 3.32 (<5); LDL CHOLESTEROL 55.2 MG/DL (<100); NON-HDL-C 81.8 MG/DL; TRIGLYCERIDES LEVEL 133.0 MG/DL (<150)
[2024-11-14 13:26] LABS: CPK CREATINE PHOSPHOKINASE 97.0 U/L (46-171)
[2024-11-15 05:31] VITALS: BP 105/70; TEMP 97.3; O2SAT 93
[2024-11-16 05:53] VITALS: BP 117/74; TEMP 97.9; O2SAT 95
[2024-11-17 03:53] VITALS: BP 114/74; TEMP 98.4; O2SAT 93
[2024-11-17 15:11] VITALS: BP 115/74
[2024-11-18 20:52] VITALS: BP 110/78; TEMP 97.9; O2SAT 94
[2024-11-19 03:34] VITALS: BP 137/72; TEMP 97.5; O2SAT 94
[2024-11-19 06:09] LABS: BASO # 0.1 10^3/uL (0.0-0.2); BASO % 0.9 % (0.0-1.0); EOS # 0.8 10^3/uL (0.0-0.5); EOS % 9.4 % (0.0-3.0); LYMPH # 3.3 10^3/uL (1.5-5.0); LYMPH % 37.3 % (24.0-44.0); MONO # 1.0 10^3/uL (0.0-0.8); MONO % 10.6 % (2.0-8.0); NEUTROPHILS # 3.7 10^3/uL (1.5-8.5); NEUTROPHILS % 41.5 % (36.0-66.0); PLATELET COUNT, AUTOMATED 270 10^3/uL (150-450)
[2024-11-19 06:44] LABS: ALT/SGPT 32.0 U/L (7.0-40); AST/SGOT 19.0 U/L (<34); C REACTIVE PROTEIN QUANTITATIV 1.0 MG/DL (<1.0); CALCIUM LEVEL 8.7 MG/DL (8.3-10.6); CARBON DIOXIDE LEVEL 30.0 MMOL/L (20-31); CHLORIDE LEVEL 102.0 MMOL/L (98-107); CREATININE FOR GFR 1.16 MG/DL (0.70-1.30); GLOMERULAR FILTRATION RATE 66.1 (>42); POTASSIUM SERUM 4.2 MMOL/L (3.5-5.1); SODIUM LEVEL 140.0 MMOL/L (136-145)
[2024-11-19] MEDS: DAPTOmycin 800 MG in NS 50 ML IV SCH (10:39)
[2024-11-19] MEDS ORDERED: MIRA33506 PO (14:38)
[2024-11-19] MEDS ORDERED: LIDO5TD TD (14:38)
[2024-11-19] MEDS ORDERED: DICL1PAT6 TOP (14:38)
[2024-11-19] MEDS ORDERED: METH-1165 PO (14:38)
[2024-11-19] MEDS ORDERED: OXYC-517 PO (14:38)
[2024-11-19] MEDS ORDERED: RAME8TAB2 PO (14:38)
[2024-11-19] MEDS ORDERED: BISA10SU PR (14:38)
[2024-11-19] MEDS ORDERED: DOCU8.6T PO (14:38)
[2024-11-19] MEDS ORDERED: OXYC15TA66 PO (14:38)
[2024-11-19] MEDS ORDERED: DAPT500F IV (14:41)
== END 2024-11-19 15:57 | DRG 872 ==
LOC: M ED 15:48 → M ED INP 10-25 00:57 → M MSPAV 10-25 03:46
PROVIDERS: ADMIT Student in an Organized Health Care Education/Training Program; ATTEND General Practice
PROC: B246ZZZ Ultrasonography of Right and Left Heart (ICD-10-PCS; 2024-10-27)
PROC: B246ZZ4 Ultrasonography of Right and Left Heart, Transesophageal (ICD-10-PCS; principal; 2024-10-29)
DX: A41.81 Sepsis due to Enterococcus (principal); C90.00 Multiple myeloma not having achieved remission; M46.26 Osteomyelitis of vertebra, lumbar region; G83.4 Cauda equina syndrome; I25.10 Atherosclerotic heart disease of native coronary artery without angina pectoris; N40.0 Benign prostatic hyperplasia without lower urinary tract symptoms; E87.6 Hypokalemia; E83.42 Hypomagnesemia; I73.9 Peripheral vascular disease, unspecified; E83.51 Hypocalcemia; E88.09 Other disorders of plasma-protein metabolism, not elsewhere classified; M48.05 Spinal stenosis, thoracolumbar region; E66.9 Obesity, unspecified; M48.062 Spinal stenosis, lumbar region with neurogenic claudication; G89.29 Other chronic pain; M51.26 Other intervertebral disc displacement, lumbar region; M16.11 Unilateral primary osteoarthritis, right hip; R74.01 Elevation of levels of liver transaminase levels; F17.210 Nicotine dependence, cigarettes, uncomplicated; K21.9 Gastro-esophageal reflux disease without esophagitis; Z79.82 Long term (current) use of aspirin; Z79.899 Other long term (current) drug therapy; Z88.8 Allergy status to other drugs, medicaments and biological substances; Z95.2 Presence of prosthetic heart valve; Z86.73 Personal history of transient ischemic attack (TIA), and cerebral infarction without residual deficits; Z85.828 Personal history of other malignant neoplasm of skin; Z90.5 Acquired absence of kidney

== ENCOUNTER → 2025-01-16 | Outpatient (CLI) | payer MEDICARE ==
[~2025-01-16] MED LIST changes: +ATOR1TAB21 PO; +ATOR40TA75 PO; +BISA10SU PR; +DAPT500F IV; +DICL1PAT6 TOP; +DOCU8.6T PO; +ECOT81TA5 PO; +KETO120S5 TOP; +LEVO1TAB39 PO; +LIDO5TD TD; +METH-1165 PO; +MIRA33506 PO; +OXYC-517 PO; +OXYC15TA66 PO; +PRES10CA2 PO; +RAME8TAB2 PO
== END ==
LOC: M PLARAD 07:46
PROVIDERS: ATTEND Physician Assistant
DX: M48.061 Spinal stenosis, lumbar region without neurogenic claudication (principal); R78.81 Bacteremia

== ENCOUNTER → 2025-03-23 | Outpatient (CLI) | payer MEDICARE ==
[~2025-03-23] MED LIST changes: -DOCU8.6T PO; +PROHANCE 279.3MG/ML 15ML VIAL As Ordered ONE; +PROHANCE 279.3MG/ML 5ML VIAL As Ordered ONE; +SENN-208 PO
== END ==
LOC: M RAD 10:41
PROVIDERS: ATTEND Physician Assistant
DX: M46.46 Discitis, unspecified, lumbar region (principal)
CPT/HCPCS: 72158; A9579